=== PATIENT | female | born 1970 | race Caucasian/White ===

== ENCOUNTER → 2016-10-22 | Outpatient (CLI) | payer BC ==
[~2016-10-22] MED LIST: ENAL10TA PO; GEMF600T3 PO; MULT1CAP27 PO
--- NOTE | 2016-10-24 09:52 | ECHOCARDIOGRAPHY REPORT ---
PROCEDURE PHYSICIAN: AMPARO SPANGLER DATE OF PROCEDURE: 10/22/2016 TWO DIMENSIONAL ECHOCARDIOGRAM REPORT PRIMARY PHYSICIAN: OTHER PHYSICIAN: REFERRING PHYSICIAN: Dr. Newman ORDERING PHYSICIAN: INDICATION FOR THE PROCEDURE: 1. Polyarthralgia. 2. Diastolic dysfunction. MEASUREMENTS DERIVED VALUES LV DIAMETER (LAX) NORMALS NORMALS Diastolic 3.5 (3.6-5.2) Eject. Fract. 60% (60%+/-6%) Systolic (2.3-3.9) Diastolic Vol. % Shortening (0.22-0.42) Systolic Vol. Aortic Root IVS THICKNESS Diastolic 1 (0.6-1.1) LVPW THICKNESS Diastolic 1 (0.6-1.1) LA DIAMETER Systolic 3.1 (2.1-3.7) FINDINGS: 1. Technical quality is good. 2. The left ventricle is normal in size with normal contractility. Systolic function appeared to be normal. Estimated ejection fraction 60%. Diastolic dysfunction is suggested by Doppler. 3. The left atrium is normal in size. No clot or thrombus were seen within the left atrium. 4. The right atrium and right ventricle are normal in size. No clot or thrombus were seen within the right side. 5. Mitral valve is normal in morphology with mild mitral regurgitation noted by color Doppler flow. Doppler across the mitral valve showed E:A reversal which is suggestive of diastolic dysfunction. 6. Aortic valve is trileaflet with normal opening and closing pattern. No significant aortic stenosis or regurgitation was seen. 7. Tricuspid valve is normal in morphology with mild tricuspid regurgitation noted by color Doppler flow. Doppler across tricuspid valve estimated pulmonary artery pressure of 33+ right atrial pressure. 8. Pulmonic valve is functioning normally. 9. No pericardial effusion. IN CONCLUSION: 1. Normal left ventricular size and systolic function. Estimated ejection fraction 60%. 2. Diastolic dysfunction is suggested by Doppler. 3. Left atrial dilatation. 4. Mild mitral and tricuspid regurgitation. 5. Pulmonary hypertension with estimated pulmonary artery pressure of 40 mmHg. Job ID: [id number] Dictated Date: 10/23/2016 14:51:31 Boatbuilder Supervisor Date: 10/24/2016 09:47:42 / geraldo
== END ==
LOC: CARD 14:05
PROVIDERS: ATTEND Internal Medicine
DX: M25.50 Pain in unspecified joint (principal); M34.9 Systemic sclerosis, unspecified; E55.9 Vitamin D deficiency, unspecified; R76.8 Other specified abnormal immunological findings in serum
CPT/HCPCS: 93306; 94060; 94726; 94729

== ENCOUNTER 2017-04-01 19:50 | Outpatient (CLI) | payer BC | END 2017-04-02 06:10 | disposition home or self-care (01) | LOC: SLEEP 19:50 | PROVIDERS: ATTEND Internal Medicine | DX: G47.10 Hypersomnia, unspecified (principal); R06.83 Snoring; R51 Headache | CPT/HCPCS: 95810 ==

== ENCOUNTER → 2017-08-19 | Outpatient (CLI) | payer BC ==
--- NOTE | 2017-08-19 13:09 | Diagnostic Imaging Report ---
INDICATION: Status post fall, pain. TECHNIQUE: Two views of the right wrist. CORRELATION STUDY: None. FINDINGS: The alignment appears to be generally anatomic. No definite evidence for acute bony abnormality. There is slight loss of the smooth cortical margin along the dorsal aspect but of likely no significance. A small bone fragment along with degenerative changes is noted about the first carpal/metacarpal articulation. On the lateral projection only, there is an abnormal density posterior to the proximal metacarpals. A small soft tissue foreign body would be difficult to exclude. IMPRESSION: 1. No definite evidence of acute bony abnormality about the right wrist. There are likely multifocal degenerative changes, most pronounced at the base of the thumb. 2. Question of a potential soft tissue foreign body dorsal to the proximal metacarpals. 3. The report was called and faxed to the office of ADELINE Glynn, by BRANDEE at 1:09 PM. Dictated by: Dictated on workstation # [id number]
== END ==
LOC: RAD 12:18
PROVIDERS: ATTEND Nurse Practitioner Family
DX: M25.531 Pain in right wrist (principal); Z91.81 History of falling
CPT/HCPCS: 73110

== ENCOUNTER → 2017-09-27 | Outpatient (CLI) | payer BC ==
--- NOTE | 2017-09-27 17:52 | Diagnostic Imaging Report ---
INDICATION: Palpable lump in the upper outer right breast. Correlation is made with prior study from 02/10/2016 and 04/12/2014. A BB marker was placed at the area of palpable abnormality in the upper outer right breast. Bilateral CC and MLO, 3-D mammography as well as a right ML 3-D mammogram was performed. The current study was also evaluated with a Computer Aided Detection (CAD) system. FINDINGS: There are intraparenchymal lymph nodes in the upper outer aspects of both breasts. No spiculated mass or malignant-appearing microcalcifications are seen. Diffuse bilateral benign-appearing calcifications are present. IMPRESSION: No mammographic features suspicious for malignancy are identified. Sonographic interrogation of the area of palpable abnormality in the upper-outer right breast is recommended and will be performed today. ACR BI-RADS Category 0: Incomplete. (Needs additional imaging evaluation). Result letter will be mailed to the patient. Note: At least 10% of breast cancer is not imaged by mammography. Dictated by: Dictated on workstation # [id number]
--- NOTE | 2017-09-27 17:53 | Diagnostic Imaging Report ---
INDICATION: Palpable lump in the right breast. Correlation is made with diagnostic mammogram earlier the same day. FINDINGS: Sonographic interrogation of the area of lump in the upper-outer right breast was performed. This corresponds to approximately the 10 o'clock location. No solid or cystic mass is identified. IMPRESSION: No sonographic abnormalities detected. The patient may return to routine annual screening mammography. Continued close clinical and self breast exam is recommended to confirm stability of the palpable abnormality. ACR BI-RADS Category 1: Negative. Dictated by: Dictated on workstation # [id number]
== END ==
LOC: RAD 08:44
PROVIDERS: ATTEND Family Medicine
DX: N63.11 Unspecified lump in the right breast, upper outer quadrant (principal); E11.9 Type 2 diabetes mellitus without complications; E78.2 Mixed hyperlipidemia; I10 Essential (primary) hypertension
CPT/HCPCS: 77066

== ENCOUNTER → 2018-12-19 | Outpatient (CLI) | payer BC ==
--- NOTE | 2018-12-19 12:17 | Diagnostic Imaging Report ---
INDICATION: Digital mammogram bilateral screening. This study was compared to prior exams of 09/27/2017, 02/10/2016 and 04/12/2014. At this time, there are no current complaints. The current study was also evaluated with a Computer Aided Detection (CAD) system. FINDINGS: The fibroglandular tissue in both breasts is heterogeneously dense. This does limit the sensitivity of this exam. Overall, there does not appear to have been any significant change when compared to the prior study. No primary or secondary sign of malignancy is noted. IMPRESSION: There is no radiographic evidence for malignancy. ACR BI-RADS Category 1: Negative. Result letter will be mailed to the patient. Note: At least 10% of breast cancer is not imaged by mammography. Dictated by: Dictated on workstation # [id number]
== END ==
LOC: RAD 08:31
PROVIDERS: ATTEND Obstetrics & Gynecology
DX: Z12.31 Encounter for screening mammogram for malignant neoplasm of breast (principal)
CPT/HCPCS: 77067

== ENCOUNTER 2019-03-11 14:10 | Outpatient (CLI) | payer BC ==
[~2019-03-11] VITALS: Ht 167.6 cm; Wt 83.9 kg
[2019-03-11] MEDS ORDERED: FENO145T37 PO (14:15)
[2019-03-11] MEDS ORDERED: METF-397 PO (14:15)
[2019-03-11] MEDS ORDERED: CHOL200059 PO (14:15)
[2019-03-11] MEDS ORDERED: DULA1.5P2 SQ (14:15)
[2019-03-11] MEDS ORDERED: CITA10TA7 PO (14:15)
[2019-03-11] MEDS ORDERED: ENAL20TA PO (14:15)
== END 2019-03-11 14:16 ==
LOC: PREOP 14:10
PROVIDERS: ATTEND Internal Medicine
DX: Z01.818 Encounter for other preprocedural examination (principal); Z12.11 Encounter for screening for malignant neoplasm of colon

== ENCOUNTER 2019-03-13 07:04 | Day surgery (SDC) | payer BC ==
--- NOTE | 2019-03-02 21:06 | HISTORY AND PHYSICAL ---
DATE OF SERVICE: COLONOSCOPY HISTORY AND PHYSICAL HISTORY OF PRESENT ILLNESS: The patient is a 48-year-old white female referred for screening colonoscopy by Dr. Huerta. She reports history of scleroderma, but there has been no evidence for organ involvement, only skin involvement, which has been stable. She occasionally has some loose stools over the past several months, but has had no blood. Denies change in weight. Denies dysphagia or abdominal pain. She is not aware of any past history of colon cancer, but her mother who is living, at the age of 2, has had reported adenomatous colonic polyp removal. Other than cutaneous involvement only to this point of scleroderma, she also reports a history of type 2 diabetes mellitus. PAST SURGICAL HISTORY: Significant for two C-sections, a cholecystectomy, fundoplication in the past, total abdominal hysterectomy and hemorrhoidectomy. MEDICATIONS: Fenofibrate 145 mg daily, citalopram 10 mg daily, metformin 1 g daily, enalapril 20 mg daily, vitamin D3 unknown dose daily and Trulicity 1.5 mg subq weekly. REVIEW OF SYSTEMS: CONSTITUTIONAL: She has had no change in weight. Denies night sweats, chills or fever. PULMONARY: She denies dyspnea on exertion, chest pain, cough. CARDIOVASCULAR: She denies orthopnea, PND, pedal edema, palpitations, presyncope or syncope. GASTROINTESTINAL: As noted in the HPI. PHYSICAL EXAMINATION: GENERAL: Reveals a well-appearing white female, who appears to be in no acute distress. HEENT: Unremarkable. Sclerae nonicteric. CHEST: Clear. CARDIOVASCULAR: Reveals regular rate and rhythm without murmur, S3 or S4. ABDOMEN: Soft, supple without mass, organomegaly or tenderness. EXTREMITIES: Reveal no cyanosis, clubbing or edema. SKIN: There is thickening of the skin across the chest and upper arms, did not note any overt evidence for sclerodactyly with normal range of motion of the fingers and wrists. ASSESSMENT AND PLAN: 1. The patient is set up for screening colonoscopy. Prep instructions with Suprep kit were given and questions were answered. 2. History of scleroderma. No reported organ involvement. No contraindications to proceeding with planned colonoscopy. Prep instructions were discussed. Her electronic medical record was reviewed and questions were answered. I thank you for the referral of this pleasant lady. Job ID: [id number] DocumentID: [id number] Dictated Date: 02/20/2019 11:56:47 Loom Changer Date: 02/20/2019 13:00:29 Dictated By: CECE JOAQUIN MD
[2019-03-13] VITALS (14 sets, daily range): BP systolic 110–138; BP diastolic 53–90
[~2019-03-13] VITALS: Ht 167.6 cm; Wt 83.9 kg
[~2019-03-13 07:04] MED LIST changes: +CHOL200059 PO; +CITA10TA7 PO; +DULA1.5P2 SQ; +ENAL20TA PO; +FENO145T37 PO; +METF-397 PO
[2019-03-13] MEDS ORDERED: D5 LR IV SOLUTION 1,000 ML IV ONE (07:12)
[2019-03-13] MEDS ORDERED: LIDOCAINE JELLY 2% 6 ML SYRINGE ONE (07:31)
[2019-03-13] MEDS ORDERED: fentaNYL INJECTION 100 MCG/2 ML AMP ONE (07:32)
[2019-03-13] MEDS ORDERED: MIDAZOLAM 2 MG/2 ML (VERSED) VIAL ONE ×2 (07:32)
[2019-03-13] MEDS ORDERED: D5 LR IV SOLUTION 1,000 ML IV STA (08:15)
[2019-03-13] MEDS ORDERED: LIDOCAINE JELLY 2% 6 ML SYRINGE MM PRN (08:15)
[2019-03-13] MEDS ORDERED: MIDAZOLAM 2 MG/2 ML (VERSED) VIAL IVP ONE (08:15)
[2019-03-13] MEDS ORDERED: fentaNYL INJECTION 100 MCG/2 ML AMP IVP ONE (08:15)
--- NOTE | 2019-03-13 11:03 | Pre-Op Note & Conscious Sedat ---
Pre-Operative Progress Note H&P Reviewed The H&P was reviewed, patient examined and no changes noted. Date H&P Reviewed: Mar 13, 2019 Time H&P Reviewed: 07:40 Conscious Sedation Pre-Proced ASA Score 2 For ASA 3 and 4: Consider anesthesia and medical clearance. Also, for patients with a history of failed moderate sedation consider anesthesia. Airway Lungs Heart ASA score ASA 1: a normal healthy patient ASA 2: a patient with a mild systemic disease (mid diabetes, controlled hypertension, obesity ASA 3: a patient with a severe systemic disease that limits activity (angina, COPD, prior Myocardial infarction) ASA 4: a patient with an incapacitating disease that is a constant threat to life (CHF, renal failure) ASA 5: a moribund patient not expected to survive 24 hrs. (ruptured aneurysm) ASA 6: a declared brain- patient whose organs are being harvested. For emergent operations, add the letter E after the classification Mallampati Classification Grade 2 Sedation Plan Analgesia, Amnesia, Plan communicated to team members, Discussed options with patient/fam, Discussed risks with patient/fam The patient is an appropriate candidate to undergo the planned procedure, sedation, and anesthesia. The patient immediately re-assessed prior to indication. CECE JOAQUIN MD Mar 13, 2019 11:03
--- NOTE | 2019-03-13 14:10 | OPERATIVE REPORT ---
DATE OF SERVICE: 03/13/2019 COLONOSCOPY SUMMARY INDICATION FOR THE PROCEDURE: Screening colonoscopy. DESCRIPTION OF PROCEDURE: The patient was placed in the left lateral decubitus position. A digital rectal evaluation was performed. Anal sphincter tone was normal and the perianal reflex was intact. No abnormalities were noted on digital inspection of the anal canal or distal rectal vault. The colonoscope was then inserted into the rectum and under direct visualization advanced to the cecum. The cecum was identified by identification of the ileocecal valve and cecal strap. Photographic documentation was obtained. A careful inspection was made as the colonoscope was withdrawn. The quality of prep was good. FINDINGS: There was no evidence for internal or external hemorrhoids. The rectum, sigmoid colon, descending colon, transverse colon, ascending colon and cecum were unremarkable with no evidence for neoplasia or diverticular disease. ASSESSMENT AND PLAN: Normal colonoscopy to the cecum. The patient's mother was diagnosed with what sounds like a very large villous adenoma for which she had to undergo a colonic resection. For this reason, I would advocate consideration for repeat screening colonoscopy in five years. I thank you for the referral of this pleasant lady. Sincerely, Job ID: [id number] DocumentID: [id number] Dictated Date: 03/13/2019 10:59:[address] Date: 03/13/2019 14:09:41 Dictated By: CECE JOAQUIN MD MTDD
== END 2019-03-13 09:33 | disposition home or self-care (01) ==
LOC: ENDO 07:04
PROVIDERS: ATTEND Internal Medicine
DX: Z12.11 Encounter for screening for malignant neoplasm of colon (principal); E11.9 Type 2 diabetes mellitus without complications; Z90.49 Acquired absence of other specified parts of digestive tract; M34.9 Systemic sclerosis, unspecified; Z90.710 Acquired absence of both cervix and uterus; Z79.84 Long term (current) use of oral hypoglycemic drugs

== ENCOUNTER → 2020-02-23 | Outpatient (CLI) | payer BC ==
[~2020-02-23] MED LIST changes: +FENO145T26 PO; -FENO145T37 PO
--- NOTE | 2020-02-23 16:43 | Diagnostic Imaging Report ---
INDICATION: Routine screening. COMPARISON: 12/19/2018 and 09/27/2017. TECHNIQUE: 2D and 3D bilateral screening mammography was performed with CAD. FINDINGS: Both breasts remain heterogeneously dense, limiting the sensitivity of mammography. Intraparenchymal lymph nodes in the outer aspects of both breasts appear stable. There are scattered benign calcifications in both breasts. No spiculated mass or malignant appearing microcalcifications are seen. The axillae are unremarkable. IMPRESSION: No mammographic features suspicious for malignancy are identified. ACR BI-RADS Category 2: Benign findings. Result letter will be mailed to the patient. Note: At least 10% of breast cancer is not imaged by mammography. Dictated by: Dictated on workstation # [id number]
== END ==
LOC: RAD 15:45
PROVIDERS: ATTEND Obstetrics & Gynecology
DX: Z12.31 Encounter for screening mammogram for malignant neoplasm of breast (principal)
CPT/HCPCS: 77063; 77067

== ENCOUNTER 2021-06-23 07:38 | Day surgery (SDC) | payer BC ==
[~2021-06-23] VITALS: Ht 167.7 cm; Wt 82.1 kg
--- NOTE | 2021-06-23 07:09 | HISTORY AND PHYSICAL ---
DATE OF SERVICE: EGD HISTORY AND PHYSICAL HISTORY: The patient is a 51-year-old white female with a history of systemic sclerosis who was eating popcorn 4 days ago when she had the sensation that she had something stuck pointing to just below the level of thyroid cartilage. She tried cold and warm liquids, cold seem to make it worse, still had a foreign body sensation, swallowed a pill, which aggravated things. She has been able to get liquids down and some soft solids with continued pain. She denied any sensation of heartburn, has had no previous problems with dysphagia. She was feeling well up until this point with no past problems with dysphagia or odynophagia. She has not to date had any known organ dysfunction problems. 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 She denies shortness of breath or dyspnea on exertion, has had no orthopnea, PND or pedal edema. She has noted no bright red blood per rectum, melena and has had difficulty with weight loss. 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 PAST SURGICAL HISTORY: Significant for two sections, cholecystectomy and fundoplication in the distant past as well as total abdominal hysterectomy and hemorrhoidectomies. Nothing over the last 4 or 5 years surgery maradiaga. I performed a screening colonoscopy on her 2 years ago that was unremarkable. MEDICATIONS ON ADMISSION: Include 65 mg iron tablet daily, metformin 1500 mg daily, colchicine 0.6 mg daily, glimepiride 2 mg q.a.m. daily, citalopram 10 mg daily, enalapril 20 mg daily, atorvastatin 40 mg daily, and Trulicity 0.75 mg weekly on with 2000 units of vitamin D. SOCIAL HISTORY: The patient works as a school counselor with no past smoking history and no significant alcohol history. REVIEW OF SYSTEMS: CONSTITUTIONAL: The patient denies no significant change in weight, night sweats, chills or fever. PULMONARY: Denies dyspnea on exertion, cough or shortness of breath at rest. CARDIOVASCULAR: Denies orthopnea, PND, palpitations, heart racing sensation or syncope. GASTROINTESTINAL: As noted in the HPI. PHYSICAL EXAMINATION: GENERAL: Reveals a white female, who appears to be in mild distress. She is able to swallow her own secretions, but sounds slightly hoarse. VITAL SIGNS: Blood pressure 118/84, weight 185 pounds, unchanged from her office weight here 2 years ago. NECK: Revealed no JVD, adenopathy or bruits. HEENT: She has a Mallampati 3 pharyngeal configuration. No erythema or exudate noted. CHEST: Clear to auscultation. CARDIOVASCULAR: Reveals a regular rate and rhythm without murmur, S3 or S4. ABDOMEN: Soft, supple without mass, organomegaly or tenderness. EXTREMITIES: Reveal no cyanosis, clubbing or edema. ASSESSMENT AND PLAN: Dysphagia in an individual with history of systemic sclerosis concerning for retained foreign body without complete obstruction. The patient is being set up for EGD. Continue liquids today. She is to hold her morning medication including glimepiride. We will remain on liquids until post-procedure. Due to the urgent nature of her dysphagia the procedure is being set up at [facility] tomorrow morning. I thank you for the referral of this pleasant lady. With answering her questions, evaluation and review of electronic medical record, 45 minutes care time spent. Job ID: [id number] DocumentID: [id number] Dictated Date: 06/22/2021 11:55:36 Full Stack Engineer Date: 06/22/2021 12:24:38 Dictated By: CECE JOAQUIN MD [facility]
[~2021-06-23 07:38] MED LIST changes: -CITA10TA7 PO; +CITA10TA9 PO; -ENAL20TA PO; +ENAL20TA16 PO
[2021-06-23] MEDS ORDERED: LACTATED RINGERS 1,000 ML IV ONE (08:02)
[2021-06-23] MEDS ORDERED: LACTATED RINGERS 1,000 ML IV STA (08:24)
[2021-06-23] MEDS ORDERED: HURRICAINE EXT TUBE (BENZOCAINE) XX PRN (08:30)
[2021-06-23] MEDS ORDERED: LIDOCAINE JELLY 2% 6 ML SYRINGE MM PRN (08:30)
[2021-06-23 08:37] VITALS: BP 125/98
--- NOTE | 2021-06-23 08:44 | Pre-Op Note & Conscious Sedat ---
Pre-Operative Progress Note H&P Reviewed The H&P was reviewed, patient examined and no changes noted. Date H&P Reviewed: Jun 23, 2021 Time H&P Reviewed: 08:44 Conscious Sedation Pre-Proced ASA Score 2 For ASA 3 and 4: Consider anesthesia and medical clearance. Also, for patients with a history of failed moderate sedation consider anesthesia. Airway Lungs Heart ASA score ASA 1: a normal healthy patient ASA 2: a patient with a mild systemic disease (mid diabetes, controlled hypertension, obesity ASA 3: a patient with a severe systemic disease that limits activity (angina, COPD, prior Myocardial infarction) ASA 4: a patient with an incapacitating disease that is a constant threat to life (CHF, renal failure) ASA 5: a moribund patient not expected to survive 24 hrs. (ruptured aneurysm) ASA 6: a declared brain- patient whose organs are being harvested. For emergent operations, add the letter E after the classification Mallampati Classification Grade 3 Sedation Plan Analgesia, Amnesia, Plan communicated to team members, Discussed options with patient/fam, Discussed risks with patient/fam The patient is an appropriate candidate to undergo the planned procedure, sedation, and anesthesia. The patient immediately re-assessed prior to indication. CECE JOAQUIN MD Jun 23, 2021 08:44
[2021-06-23] MEDS ORDERED: PROPOFOL INJECTION 50 ML IV ONE (08:47)
[2021-06-23] MEDS ORDERED: MIDAZOLAM 2 MG/2 ML (VERSED) VIAL ONE (08:47)
[2021-06-23 09:05] VITALS: BP 108/57
[2021-06-23 09:10] VITALS: BP 108/57
[2021-06-23 09:28] VITALS: BP 105/60
--- NOTE | 2021-06-23 12:24 | Anesthesia-General Post-Op ---
MAC Patient Condition Mental Status/LOC: Same as Preop Cardiovascular: Satisfactory Nausea/Vomiting: Absent Respiratory: Satisfactory Pain: Controlled Complications: Absent Post Op Complications Complications None Follow Up Care/Instructions Patient Instructions None needed. Anesthesiology Discharge Order Discharge Order Patient is doing well, no complaints, stable vital signs, no apparent adverse anesthesia problems. No complications reported per nursing. BRENDA LUIS CRNA Jun 23, 2021 12:24
--- NOTE | 2021-06-23 14:15 | OPERATIVE REPORT ---
DATE OF SERVICE: EGD SUMMARY INDICATION FOR THE PROCEDURE: Dysphagia. DESCRIPTION OF PROCEDURE: The patient was placed in left lateral decubitus position. The endoscope was inserted in the oral cavity and under direct visualization, the esophagus was intubated. The endoscope was passed down the esophagus through stomach and second portion of the duodenum. Careful inspection was made as the endoscope was withdrawn. The patient tolerated the procedure well. FINDINGS: Present oriented to the right in the posterior hypopharynx was an area of excoriation with erythema measuring about 3 mm in size. No evidence for foreign body was noted on today's procedure otherwise. The vallecula, arytenoid aperture and true and false vocal folds were unremarkable. The proximal, mid and distal esophagus were unremarkable. No evidence for erosive esophagitis was noted. The Z-line is distinct and no evidence for extrinsic compression was noted. The cardia, fundus, antrum, pylorus, pyloric channel, duodenal bulb and second portion of duodenum were unremarkable as well. No evidence for hiatal hernia was noted. ASSESSMENT: Area of excoriation oriented toward the right posterior hypopharynx was noted, likely trauma and the cause of the patient's sensation of dysphagia. The patient was reassured for comfort advising soft solid diet for the next 24-48 hours, do not expect symptoms likely to continue for longer than that. I thank you for the referral of this pleasant lady who is reassured by today's findings. CC: Dr. Young - requested, unable to deliver. Job ID: [id number] DocumentID: [id number] Dictated Date: 06/23/2021 09:05:19 Family Advocate Date: 06/23/2021 14:15:16 Dictated By: CECE JOAQUIN MD
== END 2021-06-23 10:00 | disposition home or self-care (01) ==
LOC: ENDO 07:38
PROVIDERS: ATTEND Internal Medicine
DX: R13.10 Dysphagia, unspecified (principal); I10 Essential (primary) hypertension; K21.9 Gastro-esophageal reflux disease without esophagitis; E11.9 Type 2 diabetes mellitus without complications; Z90.49 Acquired absence of other specified parts of digestive tract; Z79.899 Other long term (current) drug therapy; Z79.84 Long term (current) use of oral hypoglycemic drugs
CPT/HCPCS: 84703; 87636

== ENCOUNTER → 2021-09-20 | Outpatient (CLI) | payer BC ==
--- NOTE | 2021-09-20 13:14 | Diagnostic Imaging Report ---
INDICATION: Routine screening. COMPARISON: 02/23/2020 and 12/19/2018. TECHNIQUE: 2D and 3D bilateral screening mammography was performed with CAD. FINDINGS: Both breasts are heterogeneously dense, limiting the sensitivity of mammography. There are benign nodular densities noted in both breasts which appear stable. There are scattered benign calcifications in both breasts. No spiculated mass or malignant-appearing microcalcifications are seen. The axillae are unremarkable. IMPRESSION: No mammographic features suspicious for malignancy are identified. ACR BI-RADS Category 2: Benign findings. Result letter will be mailed to the patient. Note: At least 10% of breast cancer is not imaged by mammography. Dictated by: Dictated on workstation # [id number]
== END ==
LOC: RAD 10:30
PROVIDERS: ATTEND Obstetrics & Gynecology
DX: Z12.31 Encounter for screening mammogram for malignant neoplasm of breast (principal)
CPT/HCPCS: 77063; 77067

== ENCOUNTER → 2022-11-30 | Outpatient (CLI) | payer BC ==
[~2022-11-30] MED LIST changes: +ENAL-70 PO; -ENAL20TA16 PO
--- NOTE | 2022-11-30 18:07 | Diagnostic Imaging Report ---
INDICATION: Routine screening. COMPARISON: Prior mammograms from 09/20/2021 and 02/23/2020. EXAMINATION: 2D and 3D bilateral screening mammography was performed with CAD. The current study was also evaluated with a Computer Aided Detection (CAD) system. FINDINGS: Both breasts are heterogeneously dense, limiting the sensitivity of mammography. There are scattered benign calcifications throughout both breasts. Benign nodules in upper outer aspects of both breasts are stable. No spiculated mass or malignant-appearing microcalcifications are seen. Axillae are unremarkable. IMPRESSION: No mammographic features suspicious for malignancy are identified. ACR BI-RADS Category 2: Benign findings. Result letter will be mailed to the patient. Note: At least 10% of breast cancer is not imaged by mammography. Dictated by: Dictated on workstation # [id number]
== END ==
LOC: RAD 08:01
PROVIDERS: ATTEND Obstetrics & Gynecology
DX: Z12.31 Encounter for screening mammogram for malignant neoplasm of breast (principal)
CPT/HCPCS: 77063; 77067

== ENCOUNTER 2023-02-13 06:37 | Outpatient (CLI) | payer BC ==
[~2023-02-13] VITALS: Ht 167 cm; Wt 82.1 kg
[2023-02-13] VITALS (11 sets, daily range): BP systolic 119–138; BP diastolic 82–96
[2023-02-13 07:26] LABS: HEMATOCRIT 42 % (35-52); HEMOGLOBIN 14.1 g/dL (11.5-16.0); MEAN CORPUSCULAR HEMOGLOBIN 30 pg (25-34); MEAN CORPUSCULAR HGB CONC 34 g/dL (32-36); MEAN CORPUSCULAR VOLUME 89 fL (80-99); MEAN PLATELET VOLUME 10.5 fL (9.0-12.2); PLATELET COUNT 209 10^3/uL (130-400)
[2023-02-13 07:38] LABS: PROTHROMBIN TIME PATIENT 13.1 SEC (12.2-14.7)
[2023-02-13] MEDS ORDERED: NS IV 1000 ML 1,000 ML IV STA (07:49)
[2023-02-13] MEDS ORDERED: MIDAZOLAM 2 MG/2 ML (VERSED) VIAL IVP ONE (08:00)
[2023-02-13] MEDS ORDERED: fentaNYL INJECTION 100 MCG/2 ML VIAL IVP ONE (08:00)
[2023-02-13] MEDS ORDERED: LIDOCAINE 1% INJ 10 ML VIAL INJ ONE (08:00)
--- NOTE | 2023-02-13 10:05 | Pre-Op Note & Conscious Sedat ---
Pre-Operative Progress Note Date of Available H&P: Feb 13, 2023 Date H&P Reviewed: Feb 13, 2023 Time H&P Reviewed: 08:00 Pre-Op Diagnosis: elevated liver enzymes Moderate Sedation PreProcedure Time 08:00 ASA Score 2 Airway Lungs Heart ASA score ASA 1: a normal healthy patient ASA 2: a patient with a mild systemic disease (mid diabetes, controlled hypertension, obesity ASA 3: a patient with a severe systemic disease that limits activity (angina, COPD, prior Myocardial infarction) ASA 4: a patient with an incapacitating disease that is a constant threat to life (CHF, renal failure) ASA 5: a moribund patient not expected to survive 24 hrs. (ruptured aneurysm) ASA 6: a declared brain- patient whose organs are being harvested. For emergent operations, add the letter E after the classification Mallampati Classification Grade 2 Sedation Plan Analgesia, Amnesia, Plan communicated to team members, Discussed options with patient/fam, Discussed risks with patient/fam The patient is an appropriate candidate to undergo the planned procedure, sedation, and anesthesia. The patient immediately re-assessed prior to indication. ALEISHA HERNANDEZ MD Feb 13, 2023 10:05
--- NOTE | 2023-02-13 10:22 | Diagnostic Imaging Report ---
INDICATION: Elevated liver enzymes. Patient presents for CT-guided biopsy. TECHNIQUE: All CT scans use one or more of the following dose optimizing techniques: automated exposure control, MA and/or KvP adjustment based on patient size and exam type or iterative reconstruction. Patient was brought to the CT suite placed on table in supine position. Axial imaging through the abdomen was performed to evaluate appropriate entry site. The procedure was performed utilizing conscious sedation with radiology nursing and constipation monitoring. Patient was given a total of 1 mg of Versed intravenously. Procedure time was approximately 11 minutes. Right abdomen was prepped and draped in usual sterile fashion. Small amount 1% lidocaine was utilized for local anesthesia. An 18-gauge coaxial Temno needle was advanced into the right lobe of the liver. 4 core biopsies were obtained. Blood patch was injected during needle removal. Hemostasis was obtained utilizing manual compression. Follow-up imaging shows no complicating features. Patient tolerated procedure well and left the department in stable condition. IMPRESSION: Successful CT-guided random right lobe liver biopsy. Pathology results are currently pending. Dictated by: Dictated on workstation # [id number]
== END 2023-02-13 12:00 | disposition home or self-care (01) ==
LOC: SDC 06:37
PROVIDERS: ATTEND Internal Medicine
DX: K76.0 Fatty (change of) liver, not elsewhere classified (principal)
CPT/HCPCS: 36415; 77012; 85027; 85610; 85730; 99156